=== PATIENT | male | born 1960 | race Hispanic/Latino ===

== ENCOUNTER 2017-05-19 18:05 | Emergency (ER) | payer SELFPAY ==
[2017-05-19] MEDS ORDERED: Ketorolac Tromethamine 30 MG/ML VIAL ONE (18:42)
[2017-05-19] MEDS ORDERED: Acetaminophen 500 MG TAB ONE (19:26)
== END 2017-05-19 19:47 | disposition home or self-care (01) ==
LOC: MADERS 18:05
DX: B34.9 Viral infection, unspecified (principal); E11.9 Type 2 diabetes mellitus without complications; Z79.84 Long term (current) use of oral hypoglycemic drugs
CPT/HCPCS: 96372; J1885